=== PATIENT | male | born 1930 | race Caucasian/White ===

== ENCOUNTER 2017-09-19 16:40 | Emergency (ER) | payer OTHER ==
[~2017-09-19] VITALS: Ht 180.3 cm; Wt 92.1 kg
[2017-09-19 16:40] VITALS: BP 98/60
--- NOTE | 2017-09-19 16:40 | NUR ---
TIME: 1637 GLORIA TUBE REMOVED, PATIENT INTUBED WITH ET [address] DAMIAN.
--- NOTE | 2017-09-19 16:40 | NUR ---
1634 ARRIVAL TIME . [facility] FROM [facility]ENTER: CARDIAC ARREST, CPR IN PROGRESS,3 EPI ,1 SOD BICARB GIVEN IN FIELD, BS IN FIELD 220, GLORIA TUBE ESTABLISHED CROSSCUTTER ROLLED GLASS, L. TIBIA IO FROM FIELD. PLACED ON MONITOR. CPR IN PROGRESS, DR DAMIAN AT BEDSIDE. 1632 INTUBATED BY ETT 8
--- NOTE | 2017-09-19 16:40 | NUR ---
TIME: 1638 1 EPI GIVEN VIA LEFT IO, 1 SODIUM BICARB GIVEN VIA LEFT IO.
[2017-09-19] MEDS ORDERED: CALCIUM CHLORIDE 1,000 MG/10 ML DISP.SYRIN IV ONE (16:42)
[2017-09-19] MEDS ORDERED: SODIUM BICARBONATE SYR 50 MEQ/50 ML DISP.SYRIN IV ONE (16:42)
[2017-09-19] MEDS ORDERED: EPINEPHRINE (1:10,000) SYRINGE 1 MG/10 ML DISP.SYRIN IVP ONE (16:42)
--- NOTE | 2017-09-19 16:44 | NUR ---
NO PULSE DR DAMIAN CALLED TOD 1549
--- NOTE | 2017-09-19 17:05 | NUR ---
[facility] . PATIENT IS NOT A CPRPNER'S CASE.
--- NOTE | 2017-09-19 17:18 | NUR ---
[facility] [phone]
--- NOTE | 2017-09-19 17:21 | NUR ---
[facility] [place] [phone]
--- NOTE | 2017-09-19 17:38 | NUR ---
SPOKE TO JASWANT @ [facility] [phone], PT NOT A CANDIDATE. CC#[id number]
--- NOTE | 2017-09-19 17:42 | NUR ---
SPOKE TO TREVIN ONCE AGAIN, IN REGARDS TO HAVING A RABBI BROUGHT IN FOR THE FAMILY. WAS TOLD THAT THE DIRECTOR WILL BE GIVING THE DAUGHTER A PHONE CALL. 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
== END 2017-09-19 18:50 | disposition expired ==
LOC: ER 16:41
DX: I46.9 Cardiac arrest, cause unspecified (principal); Z99.2 Dependence on renal dialysis
CPT/HCPCS: A4606; J0171; J3490; Z7610